=== PATIENT | male | born 1960 | race Caucasian/White ===

== ENCOUNTER 2017-05-19 15:23 | Observation (INO) | payer OTHER ==
--- NOTE | 2017-05-19 16:14 | DR.H&P ---
H&P - History & Physical for Day of: H&P Date: 05/19/17 - Chief Complaint Chief Complaint: Abdominal pain with nausea, vomiting, diarrhea, weakness and feeling like going to pass out - Allergies Allergies/Adverse Reactions: Allergies Allergy/AdvReac Type Severity Reaction Status Date / Time No Known Drug Allergies Allergy Unverified 05/19/17 16:03 - History of Present Illness History of Present Illness: This is a 56 year old white male patient who present to the [facility] with complaint of Off nausea with fatigue and weakness since . States if he eats or drinks anything he becomes really nauseous and has abdominal pain. Pain is to the RUQ and umbilical region. States he's had no real appetite for one week. Patient does state that urine is dark. Patient also complains of feeling lightheaded and dizzy like he is going to pass out when he stands up. Does state the diarrhea is watery and green with a foul odor. - Past Medical History Past Medical History: Anxiety, Arthritis, CHF, Coronary Artery Disease (with Cardiomegaly), Diabetes, Headaches, Hypertension, Seizures, Sleep Apnea Additional Medical History: Pseudoseizure, Lumbago, Neuropathy - Past Surgical History Additional Surgical History: Cardiac Catherization - Family History Family Medical History: Coronary Artery Disease, Hypertension - Social History Does patient currently use any type of tobacco product: No Have you used tobacco products in the last 12 months: No Type of Tobacco Use: None Does any household member use tobacco: No Alcohol Use: None Drug Use: None - Review of Systems Constitutional: Weakness Eyes: No Symptoms Reported ENT: No Symptoms Reported Respiratory: No Symptoms Reported Cardiovascular: No Symptoms Reported Gastrointestinal: Nausea, Vomiting, Abdominal Pain, Diarrhea Genitourinary: No Symptoms Reported Musculoskeletal: No Symptoms Reported Skin: No Symptoms Reported Neurological: No Symptoms Reported Oriented: Normal Eyes: Normal Ear: Normal Nose: Normal Throat: Normal Respiratory: Clear Throughout Cardiovascular: Normal : Normal Auscultation: Bowel Sounds: Normal Tenderness: RUQ, Periumbilical, Moderate, Rebound Skin: Normal Musculoskeletal: Normal Psychiatric: Normal Mood Description: Calm Affect: Normal Speech Pattern: Clear - Assessment/Plan (1) Near syncope Status: Acute Plan: LABS, IVF hydration (2) Gastroenteritis Status: Acute Plan: Labs, CT ABD, IVFs (3) RUQ pain Status: Acute Plan: Labs, CT Abd, US Gallbladder
[2017-05-19 17:45] VITALS: BMI 45.0
[2017-05-19] MEDS ORDERED: ZOFRAN INJ 4 MG VIAL IVP PRN (18:01)
[2017-05-19] MEDS ORDERED: MORPHINE SULFATE INJ 2 MG IVP PRN (18:01)
[2017-05-19] MEDS ORDERED: PHENERGAN INJ 25 MG IVP PRN (18:01)
[2017-05-19] MEDS: NS 1000 ML 1,000 ML IV SCH (18:25)
[2017-05-19 18:35] LABS: BASOPHILS # (AUTO) 0.1 X10^3/uL (0.0-0.1); EOSINOPHILS # (AUTO) 0.1 x10^3/uL (0.0-0.2); EOSINOPHILS % (AUTO) 1.9 % (0.9-2.9); HEMATOCRIT 39.3 % (42.0-54.0); HEMOGLOBIN 13.9 g/dL (13.5-18.0); LYMPHOCYTES # (AUTO) 1.9 X10^3/uL (1.3-2.9); LYMPHOCYTES % (AUTO) 30.9 % (21.0-51.0); MEAN CORPUSCULAR HEMOGLOBIN 31.7 pg (27.0-34.0); MEAN CORPUSCULAR HGB CONC 35.3 g/dL (33.0-35.0); MEAN CORPUSCULAR VOLUME 89.8 fL (80.0-100.0); MEAN PLATELET VOLUME 9.6 fL (7.4-11.0); MONOCYTES # (AUTO) 0.5 x10^3/uL (0.3-0.8); MONOCYTES % (AUTO) 9.1 % (0.0-13.0); NEUTROPHILS # (AUTO) 3.4 x10^3/uL (2.2-4.8); NEUTROPHILS % (AUTO) 57.1 % (42.0-75.0); PLATELET COUNT 125 X10^3/uL (150.0-450.0); RED BLOOD COUNT 4.38 X10^6/uL (4.7-6.0); RED CELL DISTRIBUTION WIDTH 13.3 % (11.6-16.5)
[2017-05-19] MEDS: PROTONIX INJ 40 MG VIAL 40 MG in NS 50 ML IV 50 ML IV SCH (18:49)
[2017-05-19 19:08] LABS: BILIRUBIN,URINE 1+ (NEGATIVE); BLOOD/HEMOGLOBIN,URINE NEGATIVE (NEGATIVE); GLUCOSE, URINE 2+ (NEGATIVE); KETONES,URINE NEGATIVE (NEGATIVE); LEUKOCYTE ESTERASE ,URINE 1+ (NEGATIVE); NITRITES,URINE NEGATIVE (NEGATIVE); PROTEIN,URINE 2+ (NEGATIVE); UROBILINOGEN,URINE 2+ (NORMAL)
[2017-05-19 19:19] LABS: ALANINE AMINOTRANSFERASE 68 Units/L (12-78); ALBUMIN 2.8 g/dL (3.4-5.0); ALKALINE PHOSPHATASE 42 Units/L (46-116); AMYLASE 60 Units/L (25-115); ASPARTATE AMINO TRANSFERASE 45 Units/L (15-37); BLOOD UREA NITROGEN 7 mg/dL (7-18); CALCIUM 7.7 mg/dL (8.5-10.1); CARBON DIOXIDE 26.5 mmol/L (21-32); CHLORIDE 105 mmol/L (98-107); COR CA(FOR HYPOALB) 8.7 mg/dL (8.5-10.1); COR NA(FOR HYPERGLY) 141 mmol/L (136-145); CREATININE 0.84 mg/dL (0.70-1.30); GLUCOSE 185 mg/dL (65-99); LIPASE 205 Units/L (73-393); SODIUM 139 mmol/L (136-145); TOTAL PROTEIN 6.3 g/dL (6.4-8.2); eGFR BLACK RACES > 60 (>60); eGFR NON BLACK RACES > 60 (>60)
[2017-05-19 19:29] LABS: APPEARANCE,URINE CLEAR (CLEAR); BACTERIA,URINE 1+ /HPF (NEGATIVE); COLOR,URINE DARK YELLOW (YELLOW); RBC,URINE NONE SEEN /HPF (NEGATIVE); SQUAMOUS EPITHELIAL CELL,UR MODERATE /HPF (NEGATIVE)
[2017-05-19 19:30] LABS: MUCUS,URINE MANY /HPF (NEGATIVE)
[2017-05-19] MEDS: ROCEPHIN VIAL 1 GM 1 GM in NS 50 ML IV + SPIKE MINIBAG* 50 ML IV SCH (23:46)
[2017-05-20 04:28] LABS: BASOPHILS % (AUTO) 0.8 % (0.2-1.0); EOSINOPHILS # (AUTO) 0.1 x10^3/uL (0.0-0.2); EOSINOPHILS % (AUTO) 2.1 % (0.9-2.9); HEMATOCRIT 36.8 % (42.0-54.0); HEMOGLOBIN 12.9 g/dL (13.5-18.0); LYMPHOCYTES # (AUTO) 2.1 X10^3/uL (1.3-2.9); LYMPHOCYTES % (AUTO) 36.2 % (21.0-51.0); MEAN CORPUSCULAR HEMOGLOBIN 31.3 pg (27.0-34.0); MEAN CORPUSCULAR VOLUME 89.4 fL (80.0-100.0); MEAN PLATELET VOLUME 9.2 fL (7.4-11.0); MONOCYTES # (AUTO) 0.5 x10^3/uL (0.3-0.8); MONOCYTES % (AUTO) 8.7 % (0.0-13.0); NEUTROPHILS % (AUTO) 52.2 % (42.0-75.0); PLATELET COUNT 112 X10^3/uL (150.0-450.0); RED BLOOD COUNT 4.11 X10^6/uL (4.7-6.0); RED CELL DISTRIBUTION WIDTH 13.1 % (11.6-16.5); WHITE BLOOD COUNT 5.8 X10^3/uL (3.6-10.0)
[2017-05-20 04:43] LABS: ALANINE AMINOTRANSFERASE 60 Units/L (12-78); ALBUMIN 2.5 g/dL (3.4-5.0); ALKALINE PHOSPHATASE 34 Units/L (46-116); ASPARTATE AMINO TRANSFERASE 42 Units/L (15-37); BLOOD UREA NITROGEN 6 mg/dL (7-18); CALCIUM 7.3 mg/dL (8.5-10.1); CARBON DIOXIDE 26.5 mmol/L (21-32); CHLORIDE 105 mmol/L (98-107); COR CA(FOR HYPOALB) 8.5 mg/dL (8.5-10.1); COR NA(FOR HYPERGLY) 139 mmol/L (136-145); CREATININE 0.69 mg/dL (0.70-1.30); GLUCOSE 126 mg/dL (65-99); SODIUM 138 mmol/L (136-145); TOTAL PROTEIN 5.7 g/dL (6.4-8.2); eGFR BLACK RACES > 60 (>60); eGFR NON BLACK RACES > 60 (>60)
[2017-05-20] MEDS: NS 1000 ML 1,000 ML IV SCH ×2 (04:57→17:22)
[2017-05-20] MEDS ORDERED: K-LYTE EFFERVESCENT PO PRN (06:03)
[2017-05-20] MEDS ORDERED: POTASSIUM CHLORIDE LIQ 20 MEQ UDC PO PRN (06:03)
[2017-05-20] MEDS ORDERED: K-DUR TAB 20 MEQ PO PRN (06:03)
[2017-05-20] MEDS ORDERED: K-RIDER 10 MEQ/NS 100 ML 10 MEQ/100 ML BAG IV PRN (06:03)
--- NOTE | 2017-05-20 07:02 | US ---
TheRight Upper Quadrant Sonogram Indication: Right upper quadrant pain with nausea vomiting and diarrhea Comparison: None available Technique: Multiple soria scale and color flow Doppler images of the right upper quadrant were obtain ed. Findings: The liver borderline increased in echogenicity without focal hepatic lesion. No focal intraparenchy mal mass or intrahepatic biliary ductal dilatation can be observed. The gallbladder fails to demonstrate evidence for cholelithiasis or layering sludge.No pericholecyst ic fluid or gallbladder wall thickening can be observed. The common bile duct is unremarkable measuring 6 mm. The right kidney appears normal in size without focal parenchymal mass or nephrolithiasis. The righ t kidney measurers 9.8 cm. No hydronephrosis or perirenal fluid can be observed. IMPRESSION: 1. Questionable mild hepatic steatosis. 2.No gallbladder wall thickening, pericholecystic fluid or gallstone identified to suggest cholecyst itis. Reported By:
--- NOTE | 2017-05-20 07:04 | CT ---
HISTORY: Right upper quadrant pain, nausea, vomiting, diarrhea Study: CT abdomen without contrast Comparison: None Technique: Axial non contrast images with coronal and sagittal reformats. Dose reduction procedures were used with MA/kv adjusted for body size. This examination is limited due to the lack of intraven ous and oral contrast. Findings: The lung bases are clear. The liver is normal in size and without focal space-occupying disease at l east to the limitations of an unenhanced examination. The liver demonstrates a nodular contour or wh ich may indicate cirrhosis. Splenomegaly is present. The adrenal glands and pancreas are within norm al limits to the limitations of an unenhanced examination. No opaque stones are visible within the g allbladder. The kidneys are unobstructed and without stones. No significant intraperitoneal or retro peritoneal lymphadenopathy is identified. Those portions of the small and large bowel visualized milana ear within normal limits. No significant skeletal abnormality is identified. IMPRESSION: Nodular hepatic contour suspicious for cirrhosis Splenomegaly Reported By:
[2017-05-20] MEDS ORDERED: GLUCOPHAGE ONE ×2 (07:50→21:33)
[2017-05-20] MEDS ORDERED: BENAZEPRIL HCL PO SCH (09:00)
[2017-05-20] MEDS: LOTENSIN TAB 10 MG PO SCH (09:02)
[2017-05-20] MEDS: GLUCOPHAGE PO SCH ×2 (09:03→21:42)
[2017-05-20] MEDS: COREG TAB 12.5 MG PO SCH ×2 (09:03→21:41)
[2017-05-20] MEDS: ACTOS PO SCH (09:03)
[2017-05-20] MEDS: AMARYL TAB 4 MG PO SCH (09:03)
[2017-05-20] MEDS: K-DUR TAB 20 MEQ PO SCH ×2 (09:03→21:41)
[2017-05-20] MEDS: NEURONTIN TAB 600 MG PO SCH (09:04)
[2017-05-20] MEDS: ASPIRIN EC 81 MG PO SCH (09:04)
[2017-05-20] MEDS: NORVASC TAB 5 MG PO SCH (09:04)
[2017-05-20] MEDS: PROTONIX INJ 40 MG VIAL 40 MG in NS 50 ML IV 50 ML IV SCH (10:20)
--- NOTE | 2017-05-20 13:09 | PCM.PROG ---
Progress Note - Progress Note for Day of Date: 05/20/17 - Subjective Subjective: CONTINUED CO EPIGASTRIC PAIN AND RUQ TENDERNESS, PT HAD GB US THIS AM , HIDS SCAN THIS AM. PT NPO THIS AM AND REPORTS IMPROVED VOMITING AND NAUSEA. PLAN TO CONTINUE PAIN AND NAUSEA CONTROL, IV HYDRATION - Past Medical Family Social History Past Med/Fam/Surg Hx: No changes since H&P Allergies: Allergies No Known Drug Allergies Allergy (Unverified 05/19/17 16:03) - Review of Systems ROS: No change since H&P - Vital Signs and I&O's Vital Signs: Temperature 97.7 F Pulse Rate [Left Brachial] 82 Respiratory Rate 19 Blood Pressure [Left Arm] 137/61 O2 Sat by Pulse Oximetry 97 Intake and Output: Intake & Output 05/18/17 05/19/17 05/20/17 05/21/17 11:59 11:59 11:59 11:59 Intake Total 2130 Balance 2130 - Physical Exam Oriented: Normal Eyes: Normal Ear: Normal Nose: Normal Throat: Normal Respiratory: Normal Cardiovascular: Normal : Normal Tenderness: RUQ, Epigastric, Moderate Skin: Normal Musculoskeletal: Back:Lumbar Psychiatric: Normal Mood Description: Calm Affect: Normal Speech Pattern: Clear, Appropriate - Laboratory and Diagnostics Result Diagrams: 05/20/17 03:35 05/20/17 03:35 Labs: 05/19/17 18:43 Urine,Random Urine Culture - Preliminary Laboratory WBC 5.8 X10^3/uL (3.6-10.0) 05/20/17 03:35 RBC 4.11 X10^6/uL (4.7-6.0) L 05/20/17 03:35 Hgb 12.9 g/dL (13.5-18.0) L 05/20/17 03:35 Hct 36.8 % (42.0-54.0) L 05/20/17 03:35 MCV 89.4 fL (80.0-100.0) 05/20/17 03:35 MCH 31.3 pg (27.0-34.0) 05/20/17 03:35 MCHC 35.0 g/dL (33.0-35.0) 05/20/17 03:35 RDW 13.1 % (11.6-16.5) 05/20/17 03:35 Plt Count 112 X10^3/uL (150.0-450.0) L 05/20/17 03:35 MPV 9.2 fL (7.4-11.0) 05/20/17 03:35 Neut % 52.2 % (42.0-75.0) 05/20/17 03:35 Lymph % 36.2 % (21.0-51.0) 05/20/17 03:35 Terry % 8.7 % (0.0-13.0) 05/20/17 03:35 Eos % 2.1 % (0.9-2.9) 05/20/17 03:35 Baso % 0.8 % (0.2-1.0) 05/20/17 03:35 Neut # 3.0 x10^3/uL (2.2-4.8) 05/20/17 03:35 Lymph # 2.1 X10^3/uL (1.3-2.9) 05/20/17 03:35 Terry # 0.5 x10^3/uL (0.3-0.8) 05/20/17 03:35 Eos # 0.1 x10^3/uL (0.0-0.2) 05/20/17 03:35 Baso # 0.0 X10^3/uL (0.0-0.1) 05/20/17 03:35 Absolute Nucleated RBC 0.0 /100WBC 05/20/17 03:35 Sodium 138 mmol/L (136-145) 05/20/17 03:35 Corrected Sodium 139 mmol/L (136-145) 05/20/17 03:35 Potassium 3.2 mmol/L (3.5-5.1) L 05/20/17 03:35 Chloride 105 mmol/L (98-107) 05/20/17 03:35 Carbon Dioxide 26.5 mmol/L (21-32) 05/20/17 03:35 BUN 6 mg/dL (7-18) L 05/20/17 03:35 Creatinine 0.69 mg/dL (0.70-1.30) L 05/20/17 03:35 Est GFR (MDRD) Af Amer > 60 (>60) 05/20/17 03:35 Est GFR (MDRD) Non-Af > 60 (>60) 05/20/17 03:35 Glucose 126 mg/dL (65-99) H 05/20/17 03:35 Calcium 7.3 mg/dL (8.5-10.1) L 05/20/17 03:35 Corrected Calcium 8.5 mg/dL (8.5-10.1) 05/20/17 03:35 Total Bilirubin 0.60 mg/dL (0.2-1.0) 05/20/17 03:35 AST 42 Units/L (15-37) H 05/20/17 03:35 ALT 60 Units/L (12-78) 05/20/17 03:35 Alkaline Phosphatase 34 Units/L (46-116) L 05/20/17 03:35 Total Protein 5.7 g/dL (6.4-8.2) L 05/20/17 03:35 Albumin 2.5 g/dL (3.4-5.0) L 05/20/17 03:35 Globulin 3.2 g/dL (2.5-4.5) 05/20/17 03:35 Albumin/Globulin Ratio 0.8 Ratio (1.1-2.1) L 05/20/17 03:35 Amylase 60 Units/L (25-115) 05/19/17 18:55 Lipase 205 Units/L (73-393) 05/19/17 18:55 Specimen Type Random urine 05/19/17 18:43 Urine Color Dark yellow (YELLOW) 05/19/17 18:43 Urine Appearance Clear (CLEAR) 05/19/17 18:43 Urine pH 5.0 (5.0 - 8.0) 05/19/17 18:43 Ur Specific [place] 1.025 (1.000-1.030) 05/19/17 18:43 Urine Protein 2+ (NEGATIVE) 05/19/17 18:43 Urine Glucose (UA) 2+ (NEGATIVE) 05/19/17 18:43 Urine Ketones Negative (NEGATIVE) 05/19/17 18:43 Urine Occult Blood Negative (NEGATIVE) 05/19/17 18:43 Urine Nitrite Negative (NEGATIVE) 05/19/17 18:43 Urine Bilirubin 1+ (NEGATIVE) 05/19/17 18:43 Urine Urobilinogen 2+ (NORMAL) 05/19/17 18:43 Ur Leukocyte Esterase 1+ (NEGATIVE) 05/19/17 18:43 Urine RBC None seen /HPF (NEGATIVE) 05/19/17 18:43 Urine WBC 5-10 /HPF (NEGATIVE) 05/19/17 18:43 Ur Squamous Epith Cells Moderate /HPF (NEGATIVE) 05/19/17 18:43 Urine Bacteria 1+ /HPF (NEGATIVE) 05/19/17 18:43 Urine Mucus Many /HPF (NEGATIVE) 05/19/17 18:43 Ur Culture Indicated? Yes/culture set up 05/19/17 18:43 - Plan (1) RUQ pain Status: Acute Plan: PAIN AND NAUSEA CONTROL, IV HYDRATION. START CLEAR LIQUID DIET, ADVANCE TOLERATED, HIDA SCAN Q AM (2) Gastroenteritis Status: Acute Plan: NAUSEA CONTROL, STOOL STUDIES (3) Diabetes Status: Acute Qualifiers: Diabetes mellitus type: D Diabetes mellitus complication status: D Diabetes mellitus complication detail: D Diabetic retinopathy severity: D Proliferative retinopathy type: P Diabetes mellitus macular edema: D Diabetes mellitus retirement insulin use: D Laterality: L Chronic kidney disease stage: C (4) Hypertension Status: Acute Qualifiers: Hypertension type: H
[2017-05-20] MEDS ORDERED: SNACK - Diabetic Appropriate PO SCH (20:00)
[2017-05-20] MEDS: ROCEPHIN VIAL 1 GM 1 GM in NS 50 ML IV + SPIKE MINIBAG* 50 ML IV SCH (21:41)
[2017-05-21] MEDS: NS 1000 ML 1,000 ML IV SCH ×2 (00:10→10:43)
[2017-05-21 06:11] LABS: BASOPHILS % (AUTO) 0.8 % (0.2-1.0); EOSINOPHILS # (AUTO) 0.1 x10^3/uL (0.0-0.2); EOSINOPHILS % (AUTO) 1.8 % (0.9-2.9); HEMATOCRIT 34.6 % (42.0-54.0); HEMOGLOBIN 12.2 g/dL (13.5-18.0); LYMPHOCYTES # (AUTO) 1.4 X10^3/uL (1.3-2.9); LYMPHOCYTES % (AUTO) 32.7 % (21.0-51.0); MEAN CORPUSCULAR HEMOGLOBIN 31.6 pg (27.0-34.0); MEAN CORPUSCULAR HGB CONC 35.2 g/dL (33.0-35.0); MEAN CORPUSCULAR VOLUME 89.8 fL (80.0-100.0); MEAN PLATELET VOLUME 9.2 fL (7.4-11.0); MONOCYTES # (AUTO) 0.4 x10^3/uL (0.3-0.8); MONOCYTES % (AUTO) 9.9 % (0.0-13.0); NEUTROPHILS # (AUTO) 2.3 x10^3/uL (2.2-4.8); NEUTROPHILS % (AUTO) 54.8 % (42.0-75.0); PLATELET COUNT 113 X10^3/uL (150.0-450.0); RED BLOOD COUNT 3.85 X10^6/uL (4.7-6.0); RED CELL DISTRIBUTION WIDTH 13.3 % (11.6-16.5); WHITE BLOOD COUNT 4.2 X10^3/uL (3.6-10.0)
[2017-05-21 06:38] LABS: ALANINE AMINOTRANSFERASE 52 Units/L (12-78); ALBUMIN 2.4 g/dL (3.4-5.0); ALKALINE PHOSPHATASE 33 Units/L (46-116); AMYLASE 61 Units/L (25-115); ASPARTATE AMINO TRANSFERASE 39 Units/L (15-37); BLOOD UREA NITROGEN 6 mg/dL (7-18); CALCIUM 7.6 mg/dL (8.5-10.1); CARBON DIOXIDE 24.9 mmol/L (21-32); CHLORIDE 106 mmol/L (98-107); COR CA(FOR HYPOALB) 8.9 mg/dL (8.5-10.1); COR NA(FOR HYPERGLY) 140 mmol/L (136-145); CREATININE 0.72 mg/dL (0.70-1.30); GLUCOSE 147 mg/dL (65-99); LIPASE 158 Units/L (73-393); SODIUM 139 mmol/L (136-145); TOTAL PROTEIN 5.3 g/dL (6.4-8.2); eGFR BLACK RACES > 60 (>60); eGFR NON BLACK RACES > 60 (>60)
[2017-05-21 07:20] LABS: CRYPTOSPORIDIUM PARVUM ANTIGEN NEGATIVE (NEGATIVE); GIARDIA LAMBLIA ANTIGEN NEGATIVE (NEGATIVE)
[2017-05-21] MEDS ORDERED: GLUCOPHAGE ONE (08:42)
[2017-05-21] MEDS: NEURONTIN TAB 600 MG PO SCH (09:23)
[2017-05-21] MEDS: ACTOS PO SCH (09:24)
[2017-05-21] MEDS: LOTENSIN TAB 10 MG PO SCH (09:24)
[2017-05-21] MEDS: COREG TAB 12.5 MG PO SCH (09:24)
[2017-05-21] MEDS: GLUCOPHAGE PO SCH (09:24)
[2017-05-21] MEDS: AMARYL TAB 4 MG PO SCH (09:24)
[2017-05-21] MEDS: NORVASC TAB 5 MG PO SCH (09:25)
[2017-05-21] MEDS: K-DUR TAB 20 MEQ PO SCH (09:25)
[2017-05-21] MEDS: ASPIRIN EC 81 MG PO SCH (09:25)
[2017-05-21] MEDS ORDERED: PEPCID 20 MG IV PREMIX* 20 MG/50 ML BAG IV SCH (10:00)
[2017-05-21] MEDS ORDERED: LASIX IVP ONE (10:49)
[2017-05-21 12:57] VITALS: BP 149/68
== END 2017-05-21 12:50 | disposition home or self-care (01) ==
LOC: MED/SURG 15:23 → UNDOADMOB 15:23 → OBSVTOIN 15:25 → INTOOBSV 15:25 → MED/SURG 17:00 → OBSVTOIN 17:00 → INTOOBSV 17:00
PROVIDERS: ADMIT Internal Medicine; ATTEND Internal Medicine
DX: R10.11 Right upper quadrant pain (principal); R55 Syncope and collapse; K52.89 Other specified noninfective gastroenteritis and colitis; R10.13 Epigastric pain; R16.1 Splenomegaly, not elsewhere classified; R11.2 Nausea with vomiting, unspecified; R19.7 Diarrhea, unspecified; R53.1 Weakness; R53.83 Other fatigue; I25.10 Atherosclerotic heart disease of native coronary artery without angina pectoris; E11.65 Type 2 diabetes mellitus with hyperglycemia; R42 Dizziness and giddiness; I10 Essential (primary) hypertension; Z79.899 Other long term (current) drug therapy
CPT/HCPCS: 36415; 74150; 76705; 80053; 81001; 82150; 82270; 83690; 85025; 87045; 87086; 87205; 87328; 87329; 87336; 87427; 87899; A4222; C9113; S0028; G0378; J0696; J1940